=== PATIENT | female | born 1980 | race Caucasian/White ===

== ENCOUNTER 2024-02-29 13:59 | Outpatient (RCR) | payer OTHER, SELFPAY ==
[2024-02-29 14:11] VITALS: BP_SYST 90
--- NOTE | 2024-02-29 15:09 | OPREHPOC ---
Outpatient Therapy Plan of Care This is a Multidisciplinary Plan of Care that may contain components documented by all disciplines (PT, OT, and ST.) PT Problem 1 PT Problem #1 Knowledge Deficit PT Goal 1 Goal 1. independent and compliant with HEP Target Visit 6 PT Problem 2 PT Problem #2 Pain PT Goal 1 Goal 1. no pain in the R shoulder Target Visit 12 PT Problem 3 PT Problem #3 Impaired Range of Motion PT Goal 1 Goal 1. 165 degrees or better active R shoulder flexion 2. 160 degrees or better active R shoulder abduction 3. 90 degrees active R shoulder ER 4. 75 degrees active R shoulder IR Target Visit 12 PT Problem 4 PT Problem #4 Impaired Strength PT Goal 1 Goal 1. 5/5 R shoulder strength 2. 5/5 R elbow strength Target Visit 12 PT Problem 5 PT Problem #5 Impaired Functional Mobil PT Goal 1 Goal 1. functional reach behind head to the shirt collar without compensation 2. functional reach behind back to the bra line 3. patient to lift 40lbs from floor to waist with safe mechanics and no pain. 4. patient to push and pull 100lbs on cart without pain 5. quick dash to display 10% or less functional deficits Target Visit 12
--- NOTE | 2024-02-29 15:09 | PTOPEVAL1 ---
Assessment and note entered by JT File, PT Evaluation Information Assessment Status Evaluation Diagnosis R shoulder pain Onset 01/15/24 Subjective Information patient reports she injured her R shoulder when unloading a bunch of pallets from a POD at work she developed a sharp pain in the R shoulder when pulling the pallet madi. she reports it began to feel like the are was coming off her body. she reports she has seen the MD, had x-rays, and had a CT. she reports she occasionally has tingling in the R arm to the hand, and tightness in the R shoulder. she reports the x-rays were negative, and is unsure exactly of what the CT showed. she reports she has not had any injections. she reports she has not seen a specialist for this issue. she reports she has increased pain and symptoms with lifting her arm. she reports it hurts to lift past a certain point, and trying to lift an object. she reports reaching across her body also hurts. she reports she is still working. she reports she is on a weight lifting restriction of 10lbs on the R side at work. Reported Pain Level Pain Score 2: Self Report Assessment PT Clinical Summary mrs. thacker is a 44 yo woman who presents to skilled PT services for evaluation and treatment of R shoulder pain from an injury at work. she was injured while pulling a stack of pallets on a pallet madi at work. she presents today with decreased rom, weakness, pain, limited functional reaching, and limited lifting abilities that prevent her from performing her normal work duties . continued skilled PT is indicated to restore her objective deficits, and return her to prior level work and functional activity performances. Plan of Care Interventions Electrical Stimulation,Hot Pack/Cold Pack,Manual Therapy,Neuro Re-education,Patient/Caregiver Educati,Therapeutic Activities,Therapeutic Exercise PT Services Indicated Yes Treatment Frequency and 3x weekly for 12 visits Duration These treatments will address the objective and functional deficits as defined above. The patient will be advanced safely and appropriately in order for the patient to progress towards his/her prior level of function. Additional exercises will be introduced and as well as a comprehensive home exercise program upon discharge, if needed, ?to ensure carryover of functional gains achieved in the clinic. This treatment plan has been reviewed and agreement upon by the patient.
--- NOTE | 2024-04-04 15:28 | PTOPPROG ---
Assessment and note entered by JT File, PT Evaluation Information Assessment Status Progress Diagnosis R shoulder pain Onset 01/15/24 Subjective Information patient reports she continues to have symptoms in the R shoulder. she reports the pain has not been quite as severe at rest, but it does feel tight, compressed, and tense. increased repetitions of movements increase her pain/symptoms. she has been favoring the R using the L to perform most lifting and activities. patient has been awaiting insurance approval to return to therapy. Assessment PT Clinical Summary mrs. thacker returns to skilled PT for her first visit since her initial evaluation on 02/29/24. she has been holding from continued therapy awaiting insurance approval. she presents with improvements in shoulder rom, but continued pain and deficits in goals for pain/rom/strength/ function. continued skilled PT is indicated, and will follow her initial POC for 3x weekly for 12 visits. Plan of Care Interventions Electrical Stimulation,Hot Pack/Cold Pack,Manual Therapy,Neuro Re-education,Patient/Caregiver Educati,Therapeutic Activities,Therapeutic Exercise PT Services Indicated Yes Treatment Frequency and continue skilled PT per initial POC 3x weekly for Duration 12 visits These treatments will address the objective and functional deficits as defined above. The patient will be advanced safely and appropriately in order for the patient to progress towards his/her prior level of function. Additional exercises will be introduced and as well as a comprehensive home exercise program upon discharge, if needed, ?to ensure carryover of functional gains achieved in the clinic. This treatment plan has been reviewed and agreement upon by the patient.
--- NOTE | 2024-04-14 14:55 | PCPTNOTE ---
I reviewed the License Pending Therapist's documentation and agree with the findings.
--- NOTE | 2024-05-04 07:43 | PCPTNOTE ---
I reviewed the License Pending Therapist's documentation and agree with the findings 05/02/24.
--- NOTE | 2024-05-16 14:30 | OPREHPOC ---
Outpatient Therapy Plan of Care This is a Multidisciplinary Plan of Care that may contain components documented by all disciplines (PT, OT, and ST.) PT Problem 1 PT Problem #1 Knowledge Deficit PT Goal 1 Goal 1. independent and compliant with HEP Target Visit 6 Progress Met PT Problem 2 PT Problem #2 Pain PT Goal 1 Goal 1. no pain in the R shoulder Target Visit 24 Progress Not Met PT Problem 3 PT Problem #3 Impaired Range of Motion PT Goal 1 Goal 1. 165 degrees or better active R shoulder flexion 2. 160 degrees or better active R shoulder abduction 3. 90 degrees active R shoulder ER 4. 75 degrees active R shoulder IR Target Visit 24 Progress Partially Met Comment 05/16/24 - progress made PT Problem 4 PT Problem #4 Impaired Strength PT Goal 1 Goal 1. 5/5 R shoulder strength 2. 5/5 R elbow strength Target Visit 24 Comment 05/16/24 - progress made PT Problem 5 PT Problem #5 Impaired Functional Mobil PT Goal 1 Goal 1. functional reach behind head to the shirt collar without compensation 2. functional reach behind back to the bra line 3. patient to lift 40lbs from floor to waist with safe mechanics and no pain. 4. patient to push and pull 100lbs on cart without pain 5. quick dash to display 10% or less functional deficits Target Visit 24 Progress Not Met
--- NOTE | 2024-05-16 14:31 | PTOPREEVAL ---
Assessment and note entered by JT File, PT Evaluation Information Assessment Status Re-evaluation Diagnosis R shoulder pain ICD-10 Condition Codes (PT) M25.511 Onset 01/15/24 Subjective Information patient reports she is able to move the R shoulder a lot better. she reports she feels she is making good progress. she reports she still has a lot of popping still in the R shoulder. she reports at times she still does have stabbing pain. Reported Pain Level Pain Score 2: Self Report Assessment PT Clinical Summary mrs. thacker presents to skilled PT services for her 12th skilled therapy visit for her R shoulder. she presents today with improved active/passive rom, improved functional reaching, and improved strength of the R shoulder. she is still limited in functional lifting/reaching, rom, strength, and abiltiy to perform all prior level work duties. she is progressing towards goals, and would benefit from continued skilled PT to improve her objective/functional deficits to achieve remaining unmet goals. Plan of Care Interventions Electrical Stimulation,Hot Pack/Cold Pack,Manual Therapy,Neuro Re-education,Patient/Caregiver Educati,Therapeutic Activities,Therapeutic Exercise PT Services Indicated Yes Treatment Frequency and continue skilled PT 3x weekly for 12 more visits Duration These treatments will address the objective and functional deficits as defined above. The patient will be advanced safely and appropriately in order for the patient to progress towards his/her prior level of function. Additional exercises will be introduced and as well as a comprehensive home exercise program upon discharge, if needed, ?to ensure carryover of functional gains achieved in the clinic. This treatment plan has been reviewed and agreement upon by the patient.
--- NOTE | 2024-06-01 13:08 | PCPTNOTE ---
Patient called & cancelled scheduled appointment this date due to [illness ]
== END 2024-05-26 20:00 | disposition still patient (30) ==
LOC: CHSPT 13:59
DX: M25.511 Pain in right shoulder (principal)
CPT/HCPCS: 97014; 97110; 97161; G0283

== ENCOUNTER 2024-06-02 13:17 | Outpatient (RCR) | payer OTHER, SELFPAY ==
[2024-06-02 13:15] VITALS: BP_SYST 90
--- NOTE | 2024-06-06 11:45 | PCPTNOTE ---
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
--- NOTE | 2024-06-09 14:40 | PCPTNOTE ---
Patient called & cancelled scheduled appointment this date due to [ illness ]
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
--- NOTE | 2024-07-18 14:50 | PTOPEVAL1 ---
Assessment and note entered by Katelynn Bonilla DPT Evaluation Information Assessment Status Progress Diagnosis R shoulder pain ICD-10 Condition Codes (PT) M25.511 Onset 01/15/24 Subjective Information she reports that her shoulder is moving better since start of PT. she reports she is favoring her shoulder but has also felt like she is lifting more. patient reports that crossing over, lifting up high and pulling continue to be difficult. she reports she continues to work at 10# restriction. she reports she is waiting for work comp approval to have an injection Reported Pain Level Pain Score 1: Self Report Assessment PT Clinical Summary Ms. Velasquez has attended 22 visits of skilled PT. Functionally, she reports improvement with lifting below shoulder height but has difficulty lifting over head. She demonstrates improved active ROM but continues to be limited in functional internal and external rotation. She continues to work at restricted duty with 10# restriction. At this time , she is awaiting work comp approval for injection . She has 2 remaining visits on her POC and will be progressed per MD recommendations. Plan of Care Interventions Therapeutic Exercise,Patient/Caregiver Educati, Manual Therapy,Neuro Re-education,Therapeutic Activities,Hot Pack/Cold Pack,Electrical Stimulation PT Services Indicated Yes Treatment Frequency and continue for remaining 2 visits Duration These treatments will address the objective and functional deficits as defined above. The patient will be advanced safely and appropriately in order for the patient to progress towards his/her prior level of function. Additional exercises will be introduced and as well as a comprehensive home exercise program upon discharge, if needed, ?to ensure carryover of functional gains achieved in the clinic. This treatment plan has been reviewed and agreement upon by the patient.
--- NOTE | 2024-08-08 14:18 | PTOPREEVAL ---
Assessment and note entered by Katelynn Bonilla DPT Evaluation Information Assessment Status Progress Diagnosis R shoulder pain ICD-10 Condition Codes (PT) M25.511 Onset 01/15/24 Subjective Information patient reports she still has difficulty with reaching and lifting. she reports she does not have and MD follow up scheduled. she reports she is still waiting to hear about injections. she does report decreased pain after PT. Reported Pain Level Pain Score 2: Self Report Assessment PT Clinical Summary Mrs. Velasquez has attended 24 visits of skilled PT from 02/29/24-08/08/24. She has not met goals at this time but does report decreased pain levels and relief following PT session. She continues to report pain with functional internal and external rotation and decreased R UE strength. She reports that she has pain with lifting and pushing. She does not currently have a follow up scheduled with MD. Hold until new order from MD obtained. Plan of Care Interventions Therapeutic Exercise,Patient/Caregiver Educati, Manual Therapy,Neuro Re-education,Therapeutic Activities,Hot Pack/Cold Pack,Electrical Stimulation PT Services Indicated Yes Treatment Frequency and hold pending MD recommendations Duration These treatments will address the objective and functional deficits as defined above. The patient will be advanced safely and appropriately in order for the patient to progress towards his/her prior level of function. Additional exercises will be introduced and as well as a comprehensive home exercise program upon discharge, if needed, ?to ensure carryover of functional gains achieved in the clinic. This treatment plan has been reviewed and agreement upon by the patient.
== END 2024-08-31 23:59 | disposition home or self-care (01) ==
LOC: CHSPT 13:17
DX: M25.511 Pain in right shoulder (principal)
CPT/HCPCS: 97014; 97110; 97140; 97150; G0283